=== PATIENT | female | born 1980 | race Caucasian/White ===

== ENCOUNTER 2019-03-06 02:20 | Emergency (ER) | payer OTHER ==
[2019-03-06] MEDS ORDERED: METOPROLOL TARTRATE 5 MG/5 ML INJ IV ONE ×2 (03:09→03:53)
[2019-03-06] MEDS ORDERED: NA CHLORIDE 0.9% 1,000 ML ONE (03:10)
[2019-03-06 03:21] LABS: Absolute Lymphocytes (CBC) 1.3 K/uL (0.7-4.9); Basophils % 0.2 % (0-1.3); Hematocrit 29.9 % (36.0-45.0); Lymphocytes % 11.8 % (15.3-44.8); MPV 7.3 fL (7.6-11.3)
[2019-03-06 03:26] LABS: Protime INR 0.92
[2019-03-06 03:32] LABS: ALT/SGPT 28 U/L (12-78); AST/SGOT 13 U/L (15-37); Albumin 3.7 g/dL (3.4-5.0); Alkaline Phosphatase 68 U/L (45-117); BUN Blood Urea Nitrogen 13 mg/dL (7-18); Bicarbonate 24 mmol/L (21-32); Bilirubin Direct < 0.1 mg/dL (0-0.2); Bilirubin Total 0.2 mg/dL (0.2-1.0); Glucose Level 177 mg/dL (74-106); Magnesium 2.2 mg/dL (1.8-2.4); NT PRO-BNP 12 pg/mL (<125); Potassium 3.8 mmol/L (3.5-5.1); Protein, Total 7.7 g/dL (6.4-8.2); Sodium Level 139 mmol/L (136-145); Troponin (Emerg Dept Use Only) < 0.02 ng/mL (0.0-0.045)
--- NOTE | 2019-03-06 04:10 | EDPHYS ---
Physician Documentation [facility] Name: Andreia Busby Age: 38 yrs Sex: Female : 1980 Arrival Date: 03/06/2019 Time: 02: Bed 4 Private MD: ED Physician Saran Arnold HPI: 03/06 03:01 This 38 yrs old Female presents to ER via Ambulatory with complaints of Heart pkl Racing. 03:01 The patient presents with a history of heart racing. Context: The symptoms occur at pkl rest. Onset: The symptoms/episode began/occurred just prior to arrival, 1 hour(s) ago. Associated signs and symptoms: The patient has no apparent associated signs or symptoms. 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 - Social history:: Smoking status: Patient/guardian denies using tobacco. - Ebola Screening: : Patient negative for fever greater than or equal to 101.5 degrees Fahrenheit, and additional compatible Ebola Virus Disease symptoms. ROS: 03:01 Eyes: Negative for injury, pain, redness, and discharge, ENT: Negative for injury, pkl pain, and discharge, Neck: Negative for injury, pain, and swelling. 03:01 Cardiovascular: Positive for palpitations. 03:01 Respiratory: Negative for shortness of breath. 03:01 Abdomen/GI: Negative for abdominal pain, nausea, vomiting, and diarrhea. 03:01 Back: Negative for acute changes. 03:01 : Negative for urinary symptoms. 03:01 MS/extremity: Negative for acute changes. 03:01 Skin: Negative for rash. 03:01 Neuro: Negative for altered mental status. Exam: 03:01 Head/Face: Normocephalic, atraumatic. Eyes: Pupils equal round and reactive to light, pkl extra-ocular motions intact. Lids and lashes normal. Conjunctiva and sclera are non-icteric and not injected. Cornea within normal limits. Periorbital areas with no swelling, redness, or edema. ENT: Nares patent. No nasal discharge, no septal abnormalities noted. Tympanic membranes are normal and external auditory canals are clear. Oropharynx with no redness, swelling, or masses, exudates, or evidence of obstruction, uvula midline. Mucous membranes moist. Neck: Trachea midline, no thyromegaly or masses palpated, and no cervical lymphadenopathy. Supple, full range of motion without nuchal rigidity, or vertebral point tenderness. No Meningismus. Chest/axilla: Normal chest wall appearance and motion. Nontender with no deformity. No lesions are appreciated. Cardiovascular: Regular rate and rhythm with a normal S1 and S2. No gallops, murmurs, or rubs. Normal PMI, no JVD. No pulse deficits. Respiratory: Lungs have equal breath sounds bilaterally, clear to auscultation and percussion. No rales, rhonchi or wheezes noted. No increased work of breathing, no retractions or nasal flaring. Abdomen/GI: Soft, non-tender, with normal bowel sounds. No distension or tympany. No guarding or rebound. No evidence of tenderness throughout. Back: No spinal tenderness. No costovertebral tenderness. Full range of motion. Skin: Warm, dry with normal turgor. Normal color with no rashes, no lesions, and no evidence of cellulitis. MS/ Extremity: Pulses equal, no cyanosis. Neurovascular intact. Full, normal range of motion. Neuro: Awake and alert, GCS 15, oriented to person, place, time, and situation. Cranial nerves II-XII grossly intact. Motor strength 5/5 in all extremities. Sensory grossly intact. Cerebellar exam normal. Normal gait. Vital Signs: 02:42 BP 123 / 92; Pulse 130; Resp 18 S; Temp 98.3(O); Pulse Ox 99% on R/A; Weight 72.57 kg jd3 (R); Height 5 ft. 8 in. (172.72 cm) (R); Pain 0/10; 03:14 BP 117 / 94; Pulse 100; Resp 16 S; Pulse Ox 100% on R/A; jd3 04:14 BP 117 / 73; Pulse 86; Resp 16 S; Pulse Ox 99% on R/A; Pain 0/10; jd3 02:42 Body Mass Index 24.33 (72.57 kg, 172.72 cm) jd3 MDM: 02:24 Patient medically screened. pkl 04:06 Data reviewed: vital signs, nurses notes, lab test result(s), EKG, radiologic studies, pkl plain films. ED course: Patient feeling better. Discussed lab, EKG and X' rays results with patient. Advised to follow up with Diesel Service Apprentice next week for further evaluations. Patient understood instructions. 03/06 02:48 Order name: Basic Metabolic Panel; Complete Time: 03:34 jd3 03/06 02:48 Order name: CBC with Diff jd3 03/06 02:48 Order name: LFT's; Complete Time: 03:34 jd3 03/06 02:48 Order name: Magnesium; Complete Time: 03:34 jd3 03/06 02:48 Order name: NT PRO-BNP; Complete Time: 03:34 jd3 03/06 02:48 Order name: PT-INR; Complete Time: 03:34 jd3 03/06 02:48 Order name: Troponin (emerg Dept Use Only); Complete Time: 03:34 jd3 03/06 02:48 Order name: XRAY Chest (1 view) jd3 03/06 02:48 Order name: EKG; Complete Time: 02:49 jd3 03/06 02:48 Order name: Cardiac monitoring; Complete Time: 02:51 jd3 03/06 03:00 Order name: TSH pkl 03/06 02:48 Order name: EKG - Nurse/Tech; Complete Time: 02:51 jd3 03/06 02:48 Order name: IV Saline Lock; Complete Time: 02:57 jd3 03/06 02:48 Order name: Labs collected and sent; Complete Time: 02:57 jd3 03/06 02:48 Order name: O2 Per Protocol; Complete Time: 02:51 jd3 03/06 02:48 Order name: O2 Sat Monitoring; Complete Time: 02:51 jd3 Administered Medications: 03:14 Drug: NS 0.9% 1000 ml Route: IV; Rate: 125 ml/hr; Site: right wrist; jd3 04:28 Follow up: IV Status: Order to discontinue infusion; Order to discontinue infusion, pt jd3 discharged. 03:14 Drug: Lopressor 5 mg Route: IVP; Site: right wrist; jd3 04:15 Follow up: Response: No adverse reaction jd3 03:57 Drug: Lopressor 5 mg Route: IVP; Site: right wrist; jd3 04:28 Follow up: Response: No adverse reaction jd3 Disposition: 03/06/19 04:10 Discharged to Home. Impression: Palpitations. - Condition is Stable. - Prescriptions for Carvedilol 6.25 mg Oral Tablet - take 1 tablet by ORAL route 2 times per day with food; 60 tablet. - Medication Reconciliation Form, Thank You Letter, Antibiotic Education, Prescription Opioid Use form. - Follow up: Carlitos Croft MD; When: 2 - 3 days; Reason: Re-evaluation by your physician. Signatures: Dispatcher [employer] EDNM Saran Arnold MD MD pkl Avery Smiley RN RN jd3 Corrections: (The following items were deleted from the chart) 04:29 04:10 03/06/2019 04:10 Discharged to Home. Impression: Palpitations. Condition is jd3 Stable. Forms are Medication Reconciliation Form, Thank You Letter, Antibiotic Education, Prescription Opioid Use. Follow up: Carlitos Croft; When: 2 - 3 days; Reason: Re-evaluation by your physician. pkl
--- NOTE | 2019-03-06 04:10 | ER ---
Nurse's Notes [facility] Name: Andreia Busby Age: 38 yrs Sex: Female : 1980 Arrival Date: 03/06/2019 Time: : Bed 4 Private MD: Diagnosis: Palpitations Presentation: 03/06 02:40 Presenting complaint: Patient states: "I woke up yesterday evening and felt like my jd3 heart was racing. I am not having any pain, but I can feel my heart going really fast.". Transition of care: patient was not received from another setting of care. Onset of symptoms was March 06, 2019. Risk Assessment: Do you want to hurt yourself or someone else? Patient reports no desire to harm self or others. Initial Sepsis Screen: Does the patient meet any 2 criteria? No. Patient's initial sepsis screen is negative. Does the patient have a suspected source of infection? No. Patient's initial sepsis screen is negative. Care prior to arrival: None. 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 - Social history:: Smoking status: Patient/guardian denies using tobacco. - Ebola Screening: : Patient negative for fever greater than or equal to 101.5 degrees Fahrenheit, and additional compatible Ebola Virus Disease symptoms. Screenin:44 Abuse screen: Denies threats or abuse. Nutritional screening: No deficits noted. jd3 Tuberculosis screening: No symptoms or risk factors identified. Fall Risk Ambulatory Aid- None/Bed Rest/Nurse Assist (0 pts). Gait- Normal/Bed Rest/Wheelchair (0 pts) Mental Status- Oriented to own ability (0 pts). Total Cote Fall Scale indicates No Risk (0-24 pts). Assessment: 02:43 General: Appears in no apparent distress. uncomfortable, Behavior is calm, cooperative, jd3 appropriate for age. Pain: Denies pain. Neuro: Level of Consciousness is awake, alert, obeys commands, Oriented to person, place, time, situation. Cardiovascular: Denies chest pain, Capillary refill < 3 seconds Patient's skin is warm and dry. Rhythm is irregular. Respiratory: Reports cough that is persistent Airway is patent Respiratory effort is even, unlabored, Respiratory pattern is regular, symmetrical, Denies shortness of breath. GI: No signs and/or symptoms were reported involving the gastrointestinal system. Patient currently denies diarrhea, nausea, vomiting. : No signs and/or symptoms were reported regarding the genitourinary system. EENT: No signs and/or symptoms were reported regarding the EENT system. Derm: Skin is intact, Skin is dry, Skin is normal, Skin temperature is warm. Musculoskeletal: Circulation, motion, and sensation intact. Range of motion: intact in all extremities. 03:14 Reassessment: Patient appears in no apparent distress at this time. No changes from jd3 previously documented assessment. Patient and/or family updated on plan of care and expected duration. Pain level reassessed. Patient is alert, oriented x 3, equal unlabored respirations, skin warm/dry/pink. 04:14 Reassessment: Patient appears in no apparent distress at this time. Patient and/or d3 family updated on plan of care and expected duration. Pain level reassessed. Patient is alert, oriented x 3, equal unlabored respirations, skin warm/dry/pink. Patient states feeling better. 04:28 Reassessment: Patient appears in no apparent distress at this time. Patient and/or jd3 family updated on plan of care and expected duration. Pain level reassessed. Patient is alert, oriented x 3, equal unlabored respirations, skin warm/dry/pink. pt reporting understanding of discharge instructions. even and steady gait upon discharge. Patient states feeling better. Vital Signs: 02:42 BP 123 / 92; Pulse 130; Resp 18 S; Temp 98.3(O); Pulse Ox 99% on R/A; Weight 72.57 kg jd3 (R); Height 5 ft. 8 in. (172.72 cm) (R); Pain 0/10; 03:14 BP 117 / 94; Pulse 100; Resp 16 S; Pulse Ox 100% on R/A; jd3 04:14 BP 117 / 73; Pulse 86; Resp 16 S; Pulse Ox 99% on R/A; Pain 0/10; jd3 02:42 Body Mass Index 24.33 (72.57 kg, 172.72 cm) jd3 ED Course: 02:22 Patient arrived in ED. cl3 02:24 Saran Arnold MD is Attending Physician. pkl 02:32 Avery Smiley RN is Primary Nurse. jd3 02:41 Triage completed. jd3 02:43 Arm band placed on. jd3 02:44 Patient has correct armband on for positive identification. Placed in gown. Bed in low jd3 position. Call light in reach. Side rails up X 1. Adult w/ patient. 02:57 Inserted saline lock: 20 gauge in right wrist, using aseptic technique. Blood collected.jd3 03:08 XRAY Chest (1 view) In Process Unspecified. EDMS 04:09 Carlitos Croft MD is Referral Physician. pkl 04:15 No provider procedures requiring assistance completed. jd3 04:29 IV discontinued, intact, bleeding controlled, No redness/swelling at site. Pressure jd3 dressing applied. Administered Medications: 03:14 Drug: NS 0.9% 1000 ml Route: IV; Rate: 125 ml/hr; Site: right wrist; jd3 04:28 Follow up: IV Status: Order to discontinue infusion; Order to discontinue infusion, pt jd3 discharged. 03:14 Drug: Lopressor 5 mg Route: IVP; Site: right wrist; jd3 04:15 Follow up: Response: No adverse reaction jd3 03:57 Drug: Lopressor 5 mg Route: IVP; Site: right wrist; jd3 04:28 Follow up: Response: No adverse reaction jd3 Outcome: 04:10 Discharge ordered by . pkl 04:29 Discharged to home ambulatory, with family. jd3 04:29 Condition: stable 04:29 Discharge instructions given to patient, family, Instructed on discharge instructions, follow up and referral plans. medication usage, Demonstrated understanding of instructions, follow-up care, medications, Prescriptions given X 1. 04:29 Patient left the ED. jd3 Signatures: Dispatcher [employer] EDCO Saran Arnold MD MD pkAvery Luna RN RN jd3 Caterina Lund cl3 Corrections: (The following items were deleted from the chart) 04:15 04:14 BP 117 / 73; Pulse 86bpm; Resp 16bpm; Spontaneous; Pulse Ox 99% RA; jd3 jd3
[2019-03-06 04:46] VITALS: TEMP 98.3
[2019-03-06 04:47] VITALS: BP 117/73; O2SAT 99
[2019-03-06 06:55] LABS: Platelet Estimate INCR; Urine White Blood Cell Casts OK
[2019-03-06 06:56] LABS: Blood Morphology Comment NOTED (NOT SEEN); Hypochromasia 1+
--- NOTE | 2019-03-06 09:47 | RAD REPORT ---
EXAM DESCRIPTION: RAD - Chest Single View - 03/06/2019 3:08 am CLINICAL HISTORY: Chest pain COMPARISON: May 2007 TECHNIQUE: AP portable chest image was obtained 0305 hours . FINDINGS: Lungs are clear. Heart and vasculature are normal. No measurable pleural effusion and no p neumothorax. No acute bony abnormality seen. No acute aortic findings suspected. IMPRESSION: No acute cardiopulmonary process.
--- NOTE | 2019-03-06 12:18 | EKG ---
Test Date: 2019-03-06 Test Time: 02:51:49 Gearman: RISHI MEASUREMENT RESULTS: Intervals: Rate: 107 NE: 150 QRSD: 90 QT: 324 QTc: 432 [place]: P: 65 NE: 150 QRS: 50 T: 55 INTERPRETIVE STATEMENTS: Sinus tachycardia Otherwise normal ECG No previous ECG available for comparison Electronically Signed On 03-06-19 12:17:37 KEY BED INSTALLER by Carlitos Croft
== END 2019-03-06 04:29 | disposition home or self-care (01) ==
LOC: ER 02:20
DX: R00.2 Palpitations (principal)
CPT/HCPCS: 96361; 93005; 85025; 80048; 36415; 83735; 85610; 80076; 84443; 84484; 83880; 71045; 96374; 99284; J7030